=== PATIENT | male | born 1950 | race Caucasian/White ===

== ENCOUNTER → 2016-10-30 | Outpatient (CLI) | payer MEDICARE ==
[~2016-10-30] MED LIST: ASPI325T8 PO; ATOR40TA59 PO; CARV6.25 PO; DOCU-109 PO; FOLI1TAB16 PO; GLUC1CAP41 PO; HYDR10FO3 RC; LISI-334 PO; MELO15TA23 PO; MULT-246 PO; OMEG1CAP61 PO
--- NOTE | 2016-10-30 11:09 | RAD ---
Pelvis with left hip, 3 views, 10/30/2016: History: Hip pain Comparison is made to a study from 05/18/2016. There has been increasing cortical loss along the superior aspect of the left femoral head with underlying sclerosis and articular irregularity. There is flattening of the femoral head. The findings are compatible with chronic avascular necrosis. There is sclerosis and articular irregularity along the margins of the acetabulum similar to that seen on the prior exam. The left hip joint space actually appears to be slightly widened rather narrowed. These findings were not present on a CT study from 12/12/2012. There is mild joint space narrowing and spurring at the right hip joint. There has been a previous posterior spinal fusion and laminectomy in the lower lumbar spine with fixation rods and screws in place. An electronic device overlying the right hemipelvis may represent a spinal stimulator device. IMPRESSION: 1. Ongoing left femoral head deformity with increasing cortical loss along its articular surface. Chronic avascular necrosis is suspected with secondary arthritic change at the left hip joint. An infectious process is less likely. 3. Mild osteoarthritis of the right hip joint.
--- NOTE | 2016-10-30 11:18 | RAD ---
Right knee, 3 views, 10/30/2016: History: Knee pain Comparison is made to a study from 05/18/2016. The right knee prosthesis remains in place, unchanged in position. There is no radiographic evidence of loosening or infection. No fracture or dislocation is evident. Several small periarticular calcifications are again noted. IMPRESSION: 1. A right knee prosthesis is unchanged in position. 2. No acute abnormality is detected.
== END | disposition home or self-care (01) ==
LOC: DXRAD 10:06
PROVIDERS: ATTEND Family Medicine
DX: M16.11 Unilateral primary osteoarthritis, right hip (principal); M25.861 Other specified joint disorders, right knee; M21.852 Other specified acquired deformities of left thigh; Z96.651 Presence of right artificial knee joint
CPT/HCPCS: 73502; 73562